=== PATIENT | female | born 1960 | race Caucasian/White ===

== ENCOUNTER 2021-03-08 10:32 | Outpatient (REF) | payer MEDICARE, MEDICAID, SELFPAY ==
[2021-03-08 10:24] LABS: Blood Urea Nitrogen 10 mg/dL (9-16); Estimated Glomerular Filt Rate > 60
== END 2021-03-08 10:33 | disposition home or self-care (01) ==
LOC: HO.MRI 10:32
PROVIDERS: PCP Physician Assistant Medical; Visit Provider Psychiatry & Neurology Neurology
DX: G93.9 Disorder of brain, unspecified (principal)
CPT/HCPCS: 36415; 82565; 84520

== ENCOUNTER → 2022-07-07 14:28 | Outpatient (BNVA) | payer OTHER, SELFPAY | PROVIDERS: PCP Physician Assistant Medical; Visit Provider Student in an Organized Health Care Education/Training Program | DX: M19.041 Primary osteoarthritis, right hand (principal); M19.042 Primary osteoarthritis, left hand | CPT/HCPCS: 99202 ==

== ENCOUNTER 2022-08-14 07:15 | Outpatient (RCR) | payer MEDICARE, MEDICAID, SELFPAY ==
--- NOTE | 2022-08-14 10:22 | MHC.OT.EP ---
[address] [phone] Occupational Therapy Plan of Care Patient Name: Bozena Powell Date of Evaluation: 08/14/22 Diagnosis: Bilateral hand pain Pain Location: 2-5 base of thumb right > left .. 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 Pt self managing with Voltaren and her home paraffin unit. 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 Thank you once again for your referral.
--- NOTE | 2022-08-18 08:38 | MHC.OT.DC ---
[address] [phone] F: [phone] Occupational Therapy Discharge Note Patient Name: Bozena Michelle Sherry Provider: Kumar Child Diagnosis: Bilateral hand pain Date of Surgery: Date of Evaluation: 08/14/22 Date of Discharge: 08/18/22 Treatments to Date: 1 Cancellations to Date: 0 No Shows to Date: 0 Discharge Status: Patient Elected to Stop Discharge Summary: Pt cancelled all scheduled appointments. See eval for details Needs practice with ther ex. Electronically Signed By: Niurka Vieyra OT CHT CLT Reviewed/agree with student documentation: Therapist: Please Sign and return to therapist, thank you for your referral.
== END 2022-08-18 08:40 | disposition home or self-care (01) ==
LOC: HO.OT 07:15
PROVIDERS: PCP Physician Assistant Medical; Visit Provider Student in an Organized Health Care Education/Training Program
DX: M19.041 Primary osteoarthritis, right hand (principal); M19.042 Primary osteoarthritis, left hand
CPT/HCPCS: 97110; 97165

== ENCOUNTER 2022-11-17 07:31 | Outpatient (AMB) | payer MEDICARE, MEDICAID, SELFPAY ==
--- NOTE | 2022-11-17 07:40 | A.OFFVIS_ITS ---
Intake Vital Signs 11/17/22 07:41 Height 5 ft 3 in Weight 164 lb 10.965 oz BMI 29.2 BP 122/84 Blood Pressure Location Lt brachial Position Sitting Pulse 85 Pulse Source Pulse Oximeter Temp 96.8 F Temp Source Skin Pulse Oximetry (%) 98 Oxygen Delivery Method Room Air Intake Visit Reasons: Bilateral hand pain Intake Note: Here for lisa hand pain. Qc Chemist Required: No Accompanied by: Self / Same As Patient Allergies No Known Allergies Allergy (Verified 11/17/22 07:41) Medication List - Last Reconciled 11/17/22 by Kumar Child MD albuterol sulfate 90 mcg/actuation (Ventolin HFA) 2 puffs inhalation Q4H PRN atorvastatin 80 mg PO DAILY diclofenac sodium 1% 4 grams topical QID PRN trazodone 50 mg PO BEDTIME PRN HPI HPI Comments History of Present Illness Details 62-year-old female with bilateral hand OA returns for follow-up. She went to occupational therapy for the hands and it was not very helpful, she bought the paraffin wax machine and she uses it daily and it gives her around 10 minutes relief. She continues to have pain in her thumbs, worse in the right hand. It interferes with her ability to cook. Initial history: This is a 62-year-old female who presents for evaluation of bilateral hand pain. The pain has been ongoing for years but has become progressively worse over the last 1 year. Pain is in her thumbs in radiates into her hands and wrists. She has morning stiffness of her and lasting 10 minutes. There are some days where she cannot open jars or grab objects. She has chronic low back pain. She received cortisone injections for her back in the past. There is no known family history of autoimmune rheumatic disease. 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 Review of Systems [facility] [place] Reports arthralgias Physical Exam Vital Signs: Last Vital Signs Temp 96.8 F 11/17/22 07:41 Pulse 85 11/17/22 07:41 BP 122/84 11/17/22 07:41 Pulse Ox 98 11/17/22 07:41 Oxygen Delivery Method Room Air 11/17/22 07:41 BMI result Body Mass Index 29.2 Const General: cooperative, healthy appearing and comfortable Nutritional Appearance: overweight Orientation/consciousness: patient oriented x3 Limitations: no limitations HEENT Head: Yes normocephalic and Yes atraumatic Mouth: moist mucous membranes Resp Effort & Inspection: normal respiratory effort and able to speak in complete sentences Neuro General: patient oriented x3 Extrem Other: Osteoarthritic changes of both hands with squaring of 1st CMC joints bilaterally Bilateral tender 1st CMC joint no prominent Heberden's or Beth's nodes Few fibromyalgia tender points Normal nailfold capillaroscopy Office Procedures Joint Injection/Drain Joint Injection/Drain Primary Site: right thumb Prep: site was prepped using sterile technique and ethochloride spray was applied Injected: 20 mg of, Kenalog and other (1 mL of 1% lidocaine) Procedure: The patient tolerated the procedure well Coding Details: After prepping the right 1st CMC joint area with ChloraPrep, ethyl chloride spray was used then using a 27 gauge needle 20 mg of Kenalog mixed with 0.1 cc of 1% lidocaine was injected into the joint space - Small Joint Procedure code (CPT) selection complete Assessment & Plan Assessment & Plan (1) Osteoarthritis of hands, bilateral: Code(s): M19.041 - Primary osteoarthritis, right hand; M19.042 - Primary osteoarthritis, left hand Qualifiers: Osteoarthritis type: primary Qualified Code(s): M19.041 - Primary osteoarthritis, right hand; M19.042 - Primary osteoarthritis, left hand Plan: This is a 62-year-old female who presents for evaluation of bilateral hand pain . Picture consistent with bilateral 1st CMC joint osteoarthritis. Labs done last year showed negative RF/CCP and normal CRP/ESR. I educated patient about this condition. Discussed different treatment options. Patient went to occupational therapy and it was not very helpful. She bought the paraffin wax machine at uses it daily but only provides short-lived relief. She uses Voltaren gel 3 times a day. Patient continues to have bilateral thumb pain, worse on the right. We discussed steroid injections. Patient agreed to proceed. With patient's consent the right thumb CMC was injected in clinic today. Follow-up in 3 months, can consider doing the left thumb Continue using Voltaren gel as needed. Advised patient to use it 4 times a day. Plan I spent 15 minutes reviewing patient's chart, evaluating patient, counseling patient and documenting in the chart Orders: Orders AMB Joint Injection/Aspiration Today M19.041 - Primary osteoarthritis, right hand, M19.042 - Primary osteoarthritis, left hand Coding Level of Care Code Est Pt Level 3 (83403) Diagnoses Osteoarthritis of hands, bilateral M19.041; M19.042 Osteoarthritis type: primary CPT Codes Coding - - Small joint: - Small Joint ([id number])
[2022-11-17 07:41] VITALS: BP 122/84; PULSE 85; TEMP 36; O2SAT 98; BMI 29.2
== END 2022-11-17 08:10 | disposition home or self-care (01) ==
PROVIDERS: PCP Physician Assistant Medical; Visit Provider Student in an Organized Health Care Education/Training Program
DX: M19.041 Primary osteoarthritis, right hand (principal); M19.042 Primary osteoarthritis, left hand; M18.0 Bilateral primary osteoarthritis of first carpometacarpal joints
CPT/HCPCS: 20600; 99213

== ENCOUNTER → 2022-11-17 07:31 | Outpatient (BNVA) | payer MEDICARE, MEDICAID, SELFPAY | PROVIDERS: Visit Provider Student in an Organized Health Care Education/Training Program | DX: M19.041 Primary osteoarthritis, right hand (principal); M19.042 Primary osteoarthritis, left hand | CPT/HCPCS: 20600; 99212 ==

== ENCOUNTER 2023-02-16 07:49 | Outpatient (AMB) | payer MEDICARE, MEDICAID, SELFPAY ==
[2023-02-16 08:02] VITALS: BP 108/70; PULSE 76; TEMP 36.1; O2SAT 97; BMI 29.6
--- NOTE | 2023-02-16 08:02 | A.OFFVIS_ITS ---
Intake Vital Signs 02/16/23 08:02 Height 5 ft 3 in Weight 167 lb 1.766 oz BMI 29.6 BP 108/70 Blood Pressure Location Lt brachial Position Sitting Pulse 76 Pulse Source Pulse Oximeter Temp 97 F Temp Source Skin Pulse Oximetry (%) 97 Oxygen Delivery Method Room Air Intake Visit Reasons: OA Intake Note: Pt last seen 11/17/22, presents today for follow up. Attended 1 session of PT. States it didn't work . 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 Accompanied by: Self / Same As Patient Allergies No Known Allergies Allergy (Verified 11/17/22 07:41) Medication List - Last Reconciled 02/16/23 by Kumar Child MD albuterol sulfate 90 mcg/actuation (Ventolin HFA) 2 puffs inhalation Q4H PRN atorvastatin 80 mg PO DAILY bupropion HCl (smoking deter) 150 mg PO BID celecoxib mg PO BID diclofenac sodium 1% 4 grams topical QID PRN fluticasone furoate-vilanterol 200-25 mcg/dose (Breo Ellipta) 1 ea inhalation DAILY metoprolol succinate ER 50 mg PO DAILY trazodone 50 mg PO BEDTIME PRN HPI HPI Comments History of Present Illness Details 62-year-old female with bilateral hand O A returns for follow-up. States that the injection that was done last visit only provided a few days relief. She went to 1 session of occupational therapy and it was not helpful. She uses the paraffin wax machine daily and provides short-lived relief. She also use the Voltaren gel which provides mild short lived relief. Initial history: This is a 62-year-old female who presents for evaluation of bilateral hand pain. The pain has been ongoing for years but has become progressively worse over the last 1 year. Pain is in her thumbs in radiates into her hands and wrists. She has morning stiffness of her and lasting 10 minutes. There are some days where she cannot open jars or grab objects. She has chronic low back pain. She received cortisone injections for her back in the past. There is no known family history of autoimmune rheumatic disease. 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 [employer] Reports arthralgias and Reports stiffness Physical Exam Vital Signs: Last Vital Signs Temp 97 F 02/16/23 08:02 Pulse 76 02/16/23 08:02 BP 108/70 02/16/23 08:02 Pulse Ox 97 02/16/23 08:02 Oxygen Delivery Method Room Air 02/16/23 08:02 BMI result Body Mass Index 29.6 Const General: cooperative, healthy appearing and comfortable Nutritional Appearance: overweight Orientation/consciousness: patient oriented x3 Limitations: no limitations HEENT Head: Yes normocephalic and Yes atraumatic Mouth: moist mucous membranes Resp Effort & Inspection: normal respiratory effort and able to speak in complete sentences Neuro General: patient oriented x3 Extrem Other: Osteoarthritic changes of both hands with squaring of 1st CMC joints bilaterally Bilateral tender 1st CMC joint Negative Robert's test bilaterally no prominent Heberden's or Beth's nodes Results Reviewed Results Reviewed: X-RAY EXAM OF HAND, 3+ VIEWS Exam Date: 08/03/2021 9:42 AM Ordering Diagnosis: DizzinessHistory of CVA (cerebrovascular accident)Vertigo ? BILATERAL HANDS, 3 VIEWS EACH ? HISTORY: Bilateral hand pain. Arthritis. ? PRIOR: None. ? FINDINGS: ? Right hand: There is mild degenerative change of the 1st CMC joint. ? Left hand: There is mild degenerative change at the 1st CMC joint and scaphotrapezial trapezoidal joint. ? There is no acute fracture, malalignment, joint effusion, soft tissue abnormality, or radiopaque foreign body in either hand. ? IMPRESSION IMPRESSION: Mild degenerative changes as described, left greater than right. Labs 07/2021 CRP/ESR normal RF/CCP negative Assessment & Plan Assessment & Plan (1) Osteoarthritis of hands, bilateral: Code(s): M19.041 - Primary osteoarthritis, right hand; M19.042 - Primary osteoarthritis, left hand Qualifiers: Osteoarthritis type: primary Qualified Code(s): M19.041 - Primary osteoarthritis, right hand; M19.042 - Primary osteoarthritis, left hand Plan: This is a 62-year-old female who presents for evaluation of bilateral hand pain . Picture consistent with bilateral 1st CMC joint osteoarthritis. Labs done last year showed negative RF/CCP and normal CRP/ESR. I educated patient about this condition. Discussed different treatment options. Patient went to occupational therapy and it was not very helpful. She bought the paraffin wax machine at uses it daily but only provides short-lived relief. She uses Voltaren gel 3 times a day. Right 1st CMC joint injection done last visit only provided a few days relief. Will refer patient to Hand surgery for further evaluation Plan I spent 15 minutes reviewing patient's chart, evaluating patient, counseling patient and documenting in the chart Orders: Referrals Hand Surgery Referral M19.041 - Primary osteoarthritis, right hand, M19.042 - Primary osteoarthritis, left hand Coding Level of Care Code Est Pt Level 3 (63930) Diagnoses Primary osteoarthritis of both hands M19.041; M19.042 Osteoarthritis type: primary
== END 2023-02-16 08:40 | disposition home or self-care (01) ==
PROVIDERS: PCP Physician Assistant Medical; Visit Provider Student in an Organized Health Care Education/Training Program
DX: M19.041 Primary osteoarthritis, right hand (principal); M19.042 Primary osteoarthritis, left hand
CPT/HCPCS: 99213

== ENCOUNTER → 2023-02-16 07:49 | Outpatient (BNVA) | payer MEDICARE, MEDICAID, SELFPAY | PROVIDERS: PCP Physician Assistant Medical; Visit Provider Student in an Organized Health Care Education/Training Program | DX: M19.041 Primary osteoarthritis, right hand (principal); M19.042 Primary osteoarthritis, left hand | CPT/HCPCS: 99212 ==

== ENCOUNTER → 2023-05-16 10:29 | Outpatient (BNVA) | payer MEDICARE, MEDICAID, SELFPAY | PROVIDERS: PCP Physician Assistant Medical; Visit Provider Orthopaedic Surgery ==